=== PATIENT | female | born 1950 | race Caucasian/White ===

== ENCOUNTER 2020-04-27 12:54 | Emergency (ER) | payer MEDICARE ==
[~2020-04-27 12:54] MED LIST: AMARYL2 MG PO; ASPIRIN EC81 MG PO; AUGMENTIN 875-1 EACH PO; BENADRYL25 MG PO; BUMETANIDE0.25 MG/1 IVP; COREG 3.125M3.125 MG PO; COZAAR50 MG PO; CYPROHEPTADINE H4 MG PO; DIFLUCAN 100MG100 MG PO; EFFEXOR XR150 MG PO; HYDRALAZINE 10M10 MG PO; LEVEMIR100 UNIT/1 SC; METFORMIN HCL500 MG PO; MOBIC7.5 MG PO; NAPROXEN500 MG PO; NEURONTIN300 MG PO; PRILOSEC20 MG PO; SINGULAIR10 MG PO; VITAMIN D400 UNIT PO; WELLBUTRIN XL150 MG PO
[2020-04-27 13:27] LABS: BASOPHIL 0.2 % (0-2); EOSINOPHIL 0.6 % (0-7); HCT 40.6 % (37.0-47.0); HGB 13.4 g/dl (12.5-16.0); LYMPHOCYTE 6.4 % (15-48); MCH 30.7 pg (25.0-31.0); MCV 93.1 fL (78.0-100.0); MONOCYTE 5.6 % (0-12); MPV 12.9 fL (6.0-9.5); NEUTROPHIL 86.8 % (41-80); NRBC 0; PLT 338 K/uL (150-400); RBC 4.36 M/uL (4.20-5.40); RDW 12.7 % (11.5-14.0); WBC 14.6 K/uL (4.0-10.5)
[2020-04-27 13:37] LABS: INR 1.24 (0.9-1.2); PROTHROMBIN TIME 14.8 SECONDS (11.4-13.6); PTT 28.6 SECONDS (22.2-34.7)
[2020-04-27 13:51] LABS: LACTIC ACID 2.9 mmol/L (0.4-1.9)
[2020-04-27 14:16] LABS: ALKALINE PHOSHATASE 147 U/L (46-116); ALT 18 U/L (14-59); AST 14 U/L (15-37); BILIRUBIN - TOTAL 0.7 mg/dL (0.2-1.0); BUN 34 mg/dL (7-18); BUN/CREAT RATIO (CALC) 17.7 RATIO; CHLORIDE 88 mmol/L (98-107); CO2 (BICARBONATE) 25 mmol/L (21-32); CPK 135 U/L (26-192); CREATININE 1.92 mg/dL (0.51-0.95); GLOBULIN (CALCULATION) 4.6 g/dL; POTASSIUM 5.3 mmol/L (3.5-5.1); TOTAL PROTEIN 7.6 g/dL (6.4-8.2)
[2020-04-27 14:17] LABS: GLUCOSE >750 mg/dL (74-106)
== END 2020-04-27 14:45 | disposition other institution (70) ==
LOC: FER 12:54
PROVIDERS: Emergency Medicine
DX: S06.5X9A Traumatic subdural hemorrhage with loss of consciousness of unspecified duration, initial encounter (principal); E11.65 Type 2 diabetes mellitus with hyperglycemia; Z95.810 Presence of automatic (implantable) cardiac defibrillator; W18.2XXA Fall in (into) shower or empty bathtub, initial encounter; Y92.002 Bathroom of unspecified non-institutional (private) residence as the place of occurrence of the external cause
CPT/HCPCS: 36415; 36600; 70450; 71250; 72125; 80053; 82550; 82803; 83605; 84484; 85025; 85610; 85730; 87040; 93005; J2405; J7030; J7040

== ENCOUNTER 2021-05-05 19:04 | Emergency (ER) | payer OTHER ==
[~2021-05-05 19:04] MED LIST changes: +COREG 6.25MG6.25 MG PO; +COREG12.5 MG PO; +NITROQUIK SL0.4 MG SL
[2021-05-05 19:33] LABS: BASOPHIL 0.4 % (0-2); EOSINOPHIL 1.5 % (0-7); HCT 39.1 % (37.0-47.0); HGB 12.5 g/dl (12.5-16.0); LYMPHOCYTE 25.6 % (15-48); MCH 31.6 pg (25.0-31.0); MCV 98.7 fL (78.0-100.0); MONOCYTE 8.3 % (0-12); MPV 11.4 fL (6.0-9.5); NEUTROPHIL 64.2 % (41-80); NRBC 0; PLT 224 K/uL (150-400); RBC 3.96 M/uL (4.20-5.40); RDW 12.2 % (11.5-14.0); WBC 5.3 K/uL (4.0-10.5)
[2021-05-05 19:42] LABS: INR 0.97 (0.9-1.2); PROTHROMBIN TIME 12.3 SECONDS (11.8-13.4)
[2021-05-05 19:54] LABS: ALBUMIN 3.3 g/dL (3.4-5.0); BILIRUBIN - TOTAL 0.2 mg/dL (0.2-1.0); BUN/CREAT RATIO (CALC) 13.7 RATIO; CREATININE 1.68 mg/dL (0.51-0.95); GLOBULIN (CALCULATION) 3.4 g/dL; MAGNESIUM 1.8 mg/dL (1.8-2.4); PHOSPHORUS 3.4 mg/dL (2.6-4.7); POTASSIUM 4.9 mmol/L (3.5-5.1); TOTAL PROTEIN 6.7 g/dL (6.4-8.2)
== END 2021-05-05 22:16 | disposition home or self-care (01) ==
LOC: FER 19:04
PROVIDERS: Emergency Medicine
DX: R07.89 Other chest pain (principal); I12.9 Hypertensive chronic kidney disease with stage 1 through stage 4 chronic kidney disease, or unspecified chronic kidney disease; E11.22 Type 2 diabetes mellitus with diabetic chronic kidney disease; N18.9 Chronic kidney disease, unspecified; I25.10 Atherosclerotic heart disease of native coronary artery without angina pectoris; Z95.0 Presence of cardiac pacemaker; Z88.5 Allergy status to narcotic agent
CPT/HCPCS: 36415; 71045; 80053; 83690; 83735; 84100; 84484; 85025; 85610; J7030

== ENCOUNTER 2021-09-16 11:37 | Emergency (ER) | payer OTHER ==
[2021-09-16 13:09] LABS: BASOPHIL 0.5 % (0-2); EOSINOPHIL 1.8 % (0-7); HCT 40.3 % (37.0-47.0); HGB 13.1 g/dl (12.5-16.0); LYMPHOCYTE 31.2 % (15-48); MCH 31.2 pg (25.0-31.0); MCHC 32.5 g/dL (32.0-36.0); MONOCYTE 7.3 % (0-12); MPV 11.9 fL (6.0-9.5); NRBC 0; PLT 189 K/uL (150-400); RDW 11.9 % (11.5-14.0)
[2021-09-16 13:35] LABS: ALBUMIN 3.3 g/dL (3.4-5.0); BILIRUBIN - TOTAL 0.3 mg/dL (0.2-1.0); BUN/CREAT RATIO (CALC) 17.4 RATIO; CREATININE 2.42 mg/dL (0.51-0.95); GLOBULIN (CALCULATION) 3.6 g/dL; POTASSIUM 4.8 mmol/L (3.5-5.1); TOTAL PROTEIN 6.9 g/dL (6.4-8.2)
== END 2021-09-16 16:44 | disposition home or self-care (01) ==
LOC: FER 11:37
PROVIDERS: Emergency Medicine
DX: R07.89 Other chest pain (principal); E11.65 Type 2 diabetes mellitus with hyperglycemia; I25.10 Atherosclerotic heart disease of native coronary artery without angina pectoris; I10 Essential (primary) hypertension; Z88.5 Allergy status to narcotic agent; Z91.09 Other allergy status, other than to drugs and biological substances; Z79.84 Long term (current) use of oral hypoglycemic drugs; Z79.899 Other long term (current) drug therapy
CPT/HCPCS: 36415; 71045; 80053; 83880; 84484; 85025; 93005; 96372; J7030

== ENCOUNTER 2021-11-11 23:28 | Emergency (ER) | payer OTHER ==
[2021-11-12 00:26] LABS: BASOPHIL 0.3 % (0-2); EOSINOPHIL 2.3 % (0-7); HCT 37.4 % (37.0-47.0); HGB 12.2 g/dl (12.5-16.0); MCH 30.3 pg (25.0-31.0); MCHC 32.6 g/dL (32.0-36.0); MCV 92.8 fL (78.0-100.0); MONOCYTE 9.1 % (0-12); NRBC 0; PLT 182 K/uL (150-400); RBC 4.03 M/uL (4.20-5.40); RDW 11.1 % (11.5-14.0); WBC 5.7 K/uL (4.0-10.5)
[2021-11-12 00:48] LABS: ALBUMIN 3.3 g/dL (3.4-5.0); BILIRUBIN - TOTAL 0.3 mg/dL (0.2-1.0); CREATININE 2.51 mg/dL (0.51-0.95); GLOBULIN (CALCULATION) 2.9 g/dL; POTASSIUM 4.3 mmol/L (3.5-5.1); TOTAL PROTEIN 6.2 g/dL (6.4-8.2)
[2021-11-12 01:07] LABS: CORONAVIRUS 2019 SARS-COV-2 NEGATIVE (NEGATIVE); INFLUENZA A NAA NEGATIVE (NEGATIVE)
== END 2021-11-12 04:00 | disposition home or self-care (01) ==
LOC: FER 23:28
PROVIDERS: Emergency Medicine
DX: R07.89 Other chest pain (principal); I10 Essential (primary) hypertension; E11.9 Type 2 diabetes mellitus without complications; Z88.5 Allergy status to narcotic agent; Z79.4 Long term (current) use of insulin; Z20.822 Contact with and (suspected) exposure to COVID-19
CPT/HCPCS: 36415; 71045; 80053; 83880; 84484; 85025; 93005; J7030; U0002